=== PATIENT | female | born 1955 | race Caucasian/White ===

== ENCOUNTER 2017-01-01 12:16 | Emergency (ER) | payer OTHER ==
[~2017-01-01] VITALS: Wt 71.0 kg
[~2017-01-01 12:16] MED LIST: CETI10CA PO; LEVO25TA53 PO; LOVA10TA63 PO; METR500T PO
--- NOTE | 2017-01-01 13:56 | ERD ---
ER Documentation Chief Complaint Date/Time DATE: 01/01/17 TIME: 13:49 Chief Complaint COUGH X 2 MONTHS HPI 61-year-old female complains of nonproductive cough for 2 months. Denies fever , night sweats, shortness of breath or chest pain. Complaints of throat pain when coughing. Patient takes OTC antitussive medications. Patient does not smoke but smokes at home. Patient also complains of multiple episodes of flatulence. Denies nausea, diarrhea, or constipation. ROS All systems reviewed and are negative except as per history of present illness. Medications Home Meds Active Scripts Simethicone* (Anti-Gas/80*) 80 Mg Tab.chew, 80 MG PO Q6H Y for DISTENSION/GAS/ BLOATING, #20 TAB.CHEW Prov:MONROE TORRES 01/01/17 Benzonatate* (Tessalon Perle*) 100 Mg Capsule, 100 MG PO Q8H Y for COUGH, #30 CAP Prov:MONROE TORRES 01/01/17 Metronidazole* (Flagyl*) 500 Mg Tablet, 500 MG PO TID for 7 Days, TAB Prov:BOB DHILLON PA-C 09/22/16 Cetirizine Hcl* (Zyrtec*) 10 Mg Capsule, 10 MG PO DAILY, #15 TAB.CHEW Prov:GUSTAVO LUNA MD 08/20/16 Reported Medications Lovastatin* (Lovastatin*) 10 Mg Tablet, 10 MG PO HS, TAB 09/01/16 Levothyroxine Sodium* (Levothyroxine Sodium*) 25 Mcg Tablet, 25 MCG PO BEFORE BREAKFAST, #30 TAB 09/01/16 Allergies Allergies: Coded Allergies: No Known Allergy (Unverified , 09/01/16) PMhx/Soc History of Surgery: Yes (APPY, R FEMOR AND ELBOW FX, TUBAL) Anesthesia Reaction: Yes (NAUSEA) Hx Neurological Disorder: No Hx Respiratory Disorders: No Hx Cardiac Disorders: Yes (HTN, HIGH CHOL) Hx Psychiatric Problems: No Hx Miscellaneous Medical Probl: No Hx Alcohol Use: No Hx Substance Use: No Hx Tobacco Use: No Physical Exam Vitals Vital Signs Date Time Temp Pulse Resp B/P Pulse Ox O2 Delivery O2 Flow Rate FiO2 01/01/17 12:23 98.0 84 18 134/82 98 Physical Exam Const: Well-developed, well-nourished, in no acute distress. HEENT: Atraumatic. Normal Conjunctiva. TM intact. External ear is normal, mastoids are nontender, clear oropharynx. Supple. Full range of motion. No meningismus. Resp: Clear to auscultation bilaterally. No wheezing. Cardio: Regular rate and rhythm, no murmurs Abd: Soft, non tender, non distended. Normal bowel sounds. No McBurney' s point tenderness. No guarding or rigidity. No peritoneal signs. Skin: No petechia or rashes Back: No midline or flank tenderness Ext: No cyanosis, or edema Neur: Awake and alert, appropriate for age Results 24 hrs PROCEDURE: XR Chest. CLINICAL INDICATION: Cough. TECHNIQUE: Single frontal view of the chest was obtained COMPARISON: No. FINDINGS: The soft tissues are normal. The bony elements are normal. The heart, left side aorta, cardiomediastinal silhouette, pulmonary vasculature and hilar structures are normal. The lungs are clear. The costophrenic angles are normal. IMPRESSION: 1. Normal chest x-ray. No evidence of an acute infiltrate. RPTAT:AAJJ Physician Darrius Date Time Electronically viewed and signed by Jesus Morgan Physician on 01/01/2017 14:38 Procedures/MDM Patient is a 61-year-old female complaining of non-productive cough for 2 months without any episodes of fever, shortness of breath, diarrhea, chest pain , night sweats or weakness. Chest x-ray was done and is negative for any infiltrates. Patient was diagnosed with upper respiratory infection. Patient will be discharged home with a prescription for antitussive and flatulence medications. Patient was instructed to immediately return to ED for episodes of fevers, shortness of breath or chest pain. Differential diagnosis includes pneumonia, tuberculosis, COPD, emphysema and upper respiratory infection. Departure Diagnosis: Primary Impression: Upper respiratory infection URI type: unspecified viral URI Qualified Code: J06.9 - Viral upper respiratory tract infection Additional Impressions: Flatulence symptom Cough Condition: Good MONROE TORRES Jan 01, 2017 13:56
--- NOTE | 2017-01-01 14:39 | RADRPT ---
PROCEDURE: XR Chest. CLINICAL INDICATION: Cough. TECHNIQUE: Single frontal view of the chest was obtained COMPARISON: No. FINDINGS: The soft tissues are normal. The bony elements are normal. The heart, left side aorta, cardiomedias tinal silhouette, pulmonary vasculature and hilar structures are normal. The lungs are clear. The co stophrenic angles are normal. IMPRESSION: 1. Normal chest x-ray. No evidence of an acute infiltrate. RPTAT:AAJJ Physician Darrius Date Time Electronically viewed and signed by Jesus Morgan Physician on 01/01/2017 14:38 FISH/
[2017-01-01] MEDS ORDERED: SIME80TA PO (15:05)
[2017-01-01] MEDS ORDERED: BENZ100C70 PO (15:05)
[2017-01-01 15:22] VITALS: BP 148/82; PULSE 78; RESP 18; TEMP 98
== END 2017-01-01 15:22 | disposition home or self-care (01) ==
LOC: FTE 12:16
DX: J06.9 Acute upper respiratory infection, unspecified (principal); R14.3 Flatulence; I10 Essential (primary) hypertension
CPT/HCPCS: 71010; Z7502